=== PATIENT | female | born 1965 | race Caucasian/White ===

== ENCOUNTER 2023-06-21 13:43 | Emergency (ER) | payer OTHER ==
[2023-06-21 13:59] VITALS: RESP 18; BMI 25.8
[2023-06-21] MEDS ORDERED: ACETAMINOPHEN 325 MG TABLET (FP) PO ONE (14:32)
[2023-06-21] MEDS ORDERED: FAMOTIDINE 20 MG TABLET PO ONE (14:32)
[2023-06-21] MEDS ORDERED: MAG HYDROX/AL HYDROX/SIMETH 30 ML UNIT-DOSE CUP PO ONE (14:32)
[2023-06-21] MEDS ORDERED: SUCRALFATE 1 GM TABLET (FP) PO ONE (14:34)
[2023-06-21] MEDS ORDERED: FAMOTIDINE 20 MG TABLET ONE (14:54)
[2023-06-21] MEDS ORDERED: SUCRALFATE 1 GM TABLET (FP) ONE (14:55)
[2023-06-21] MEDS ORDERED: ACETAMINOPHEN 325 MG TABLET (FP) ONE (14:55)
[2023-06-21] MEDS ORDERED: MAG HYDROX/AL HYDROX/SIMETH 30 ML UNIT-DOSE CUP ONE (14:55)
[2023-06-21 15:11] LABS: URINE APPEARANCE CLEAR; URINE BILIRUBIN NEGATIVE (NEGATIVE); URINE COLOR YELLOW; URINE GLUCOSE (UA) NEGATIVE (NEGATIVE); URINE KETONE NEGATIVE (NEGATIVE); URINE LEUK ESTERASE NEGATIVE (NEGATIVE); URINE NITRITE NEGATIVE (NEGATIVE); URINE PROTEIN NEGATIVE (NEGATIVE); URINE UROBILINOGEN 0.2 mg/dL (0.2-1.0)
[2023-06-21 16:38] VITALS: BP 155/85; PULSE 85; TEMP 98
== END 2023-06-21 16:38 | disposition home or self-care (01) ==
LOC: JER 13:43
DX: R10.84 Generalized abdominal pain (principal); K59.00 Constipation, unspecified; R19.4 Change in bowel habit; R14.3 Flatulence; K92.1 Melena; R11.0 Nausea
CPT/HCPCS: 36415; 81003; 82272; 87086; 99283-25

== ENCOUNTER 2023-10-22 16:53 | Emergency (ER) | payer OTHER ==
[2023-10-22 16:57] VITALS: BP 160/99; PULSE 70; RESP 18; TEMP 98; BMI 29.2
[2023-10-22] MEDS ORDERED: LIDOCAINE 5% TOPICAL PATCH TP ONE (18:13)
[2023-10-22] MEDS ORDERED: KETOROLAC TROMETHAMINE 30 MG/1 ML VIAL IM ONE (18:13)
[2023-10-22] MEDS ORDERED: ACETAMINOPHEN 500 MG TABLET (FP) PO ONE ×2 (18:13→18:32)
[2023-10-22] MEDS ORDERED: IBUPROFEN 400 MG TABLET (FP) PO ONE ×2 (18:33→18:35)
[2023-10-22] MEDS ORDERED: LIDOCAINE 4% PATCH TP ONE (18:35)
[2023-10-22] MEDS ORDERED: ACETAMINOPHEN 500 MG TABLET (FP) ONE (18:36)
[2023-10-22 19:17] LABS: BASO % 0.6 % (0-2.0); EOS % 2.6 % (0-4.5); HEMATOCRIT 40.7 % (32.4-45.2); HEMOGLOBIN 13.7 GM/dL (10.7-15.3); LYMPH % 28.7 % (8-40); MCH 29.1 pg (25.7-33.7); MCHC 33.6 g/dl (32.0-36.0); MEAN CELL VOLUME 86.6 fl (80-96); NEUT % 59.1 % (42.8-82.8); PLATELET COUNT 260 10^3/uL (134-434); RDW 13.3 % (11.6-15.6); WHITE BLOOD COUNT 5.7 K/mm3 (4.0-10.0)
[2023-10-22 19:24] LABS: INR 1.06 (0.83-1.09); PROTHROMBIN TIME (PATIENT) 12.3 SEC (9.7-13.0)
[2023-10-22 19:27] LABS: ACTIVATED PTT 30.7 SECONDS (25.2-36.5)
[2023-10-22 19:36] LABS: POTASSIUM 3.8 mmol/L (3.5-5.1)
[2023-10-22 19:41] LABS: ALBUMIN 4.3 g/dl (3.4-5.0)
[2023-10-22 19:43] LABS: BLOOD UREA NITROGEN 12.6 mg/dL (7-18)
[2023-10-22 19:45] LABS: CREATININE 0.8 mg/dL (0.55-1.3)
[2023-10-22 19:46] LABS: BILIRUBIN,TOTAL 0.5 mg/dL (0.2-1)
[2023-10-22] MEDS ORDERED: LIDOCAINE PATCH REMOVAL MC SCH (22:00)
== END 2023-10-22 21:00 | disposition home or self-care (01) ==
LOC: JER 16:53
DX: R07.9 Chest pain, unspecified (principal); R06.02 Shortness of breath; I10 Essential (primary) hypertension; Z20.822 Contact with and (suspected) exposure to COVID-19
CPT/HCPCS: 0241U-QW; 36415; 71046-TC-FY; 80053; 84484; 85025; 85610; 85730; 93005; 93010; 99285-25